=== PATIENT | female | born 2000 | race African-American/Black ===

== ENCOUNTER 2019-01-05 09:40 | Emergency (ER) | payer OTHER ==
--- NOTE | 2019-01-05 10:07 | ED ---
Abdominal Pain/Female - HPI Summary HPI Summary: Patient is a 18 y/o female who presents to the ED c/o abdominal pain. Around 5: 00 this morning she began to have mild umbilical abdominal pain. Patient walked back home and the pain became worse after lying down. The pain is rated an 8/10 in severity and is constant. She describes the feeling as a weight in her stomach and is made worse with walking and touch. Patient denies any N/V/D, constipation, fever, or pelvic pain. She denies any recent sexual activity. - History of Current Complaint Chief Complaint: EDGordonin Stated Complaint: "PAIN ABOVE THE NAVAL" PER PT Time Seen by Provider: 01/05/19 09:54 Hx Obtained From: Patient Onset/Duration: Gradual Onset, Lasting Hours - 5:00 this morning, Worse Since Timing: Constant Severity Initially: Mild Severity Currently: Severe Pain Intensity: 8 Pain Scale Used: 0-10 Numeric Location: Umbilical Radiates: No Character: Other: - "weight" Aggravating Factor(s): Movement, Other: - touch Alleviating Factor(s): Nothing Associated Signs and Symptoms: Negative: Fever, Constipation, Nausea, Vomiting, Diarrhea Allergies/Adverse Reactions: Allergies Allergy/AdvReac Type Severity Reaction Status Date / Time Sulfa (Sulfonamide Allergy Hives Verified 01/05/19 09:45 Antibiotics) Home Medications: Home Medications Calcium Citrate TAB* [Citracal TAB*] 200 mg PO BID PRN 01/05/19 [History Confirmed 01/05/19] PMH/Surg Hx/FS Hx/Imm Hx Endocrine/Hematology History: Denies: Hx Diabetes Cardiovascular History: Denies: Hx Hypertension Psychiatric History: Reports: Hx Anxiety Infectious Disease History: No Infectious Disease History: Denies: Traveled Outside the [place] in Last 30 Days - Family History Known Family History: Positive: Hypertension - Social History Alcohol Use: Occasionally Hx Substance Use: No Substance Use Type: Reports: None Hx Tobacco Use: No Smoking Status (MU): Never Smoked Tobacco Review of Systems Negative: Fever Positive: Abdominal Pain. Negative: Vomiting, Diarrhea, Nausea, Other - constipation Negative: Myalgia - pelvic pain All Other Systems Reviewed And Are Negative: Yes Physical Exam - Summary Physical Exam Summary: Appearance: Well appearing, no pain distress Skin: warm, dry, reflects adequate perfusion Head/face: normal Eyes: EOMI, DANIELA ENT: mucous membranes moist Neck: supple, non-tender Respiratory: CTA, breath sounds present Cardiovascular: RRR, pulses symmetrical Abdomen: soft, tenderness local to umbilicus in soft tissue external to abdomen , fullness to right side of umbilicus, RLQ and pelvis non-tender, moves freely without pain, no hernia palpated Bowel Sounds: present Musculoskeletal: normal, strength/ROM intact Neuro: normal, sensory motor intact, A&Ox3 Triage Information Reviewed: Yes Vital Signs On Initial Exam: Initial Vitals Temp Pulse Resp BP Pulse Ox 98.6 F 74 16 135/84 100 01/05/19 09:41 01/05/19 09:41 01/05/19 09:41 01/05/19 09:41 01/05/19 09:41 Vital Signs Reviewed: Yes Diagnostics - Vital Signs Vital Signs Temp Pulse Resp BP Pulse Ox 01/05/19 09:41 98.6 F 74 16 135/84 100 - Laboratory Result Diagrams: 01/05/19 10:19 01/05/19 10:19 Lab Statement: Any lab studies that have been ordered have been reviewed, and results considered in the medical decision making process. - Ultrasound No standard instances Ultrasound Interpretation Completed By: Radiologist Summary of Ultrasound Findings: Abdomen US: HYPOECHOIC LESION OF THE AREA OF CLINICAL ABNORMALITY. IMAGING APPEARANCE IS INDETERMINATE BUT IS SUGGESTIVE OF FAT WITHIN A SMALL FAT-CONTAINING OF THE HERNIA. THERE IS NO INFLAMMATORY CHANGE. THERE IS NO LOCULATED FLUID COLLECTION. THERE IS NO APPRECIABLE PERSISTENT URACHUS. FINDINGS WERE REVIEWED WITH DR. CLARK ON THE MORNING OF JANUARY 05, 2019. ED physician reviewed radiology report. Abdominal Pain Fem Course/Dx - Course Course Of Treatment: Nurse's notes reviewed. Patient has tenderness localized to the soft tissues adjacent to the umbilicus. Concern for ureteral remanent or hernia. Ultrasound shows a small fat-containing hernia in the area. Her laboratories are benign and more importantly her right lower quadrant is completely nontender. She moves freely without tenderness. She was given Naprosyn here with full relief. She will follow-up with surgery as needed. - Diagnoses Differential Diagnosis: Positive: Appendicitis, Ovarian Cyst, Pelvic Inflammatory Disease, Other - Umbilical hernia, urachal remnant Provider Diagnoses: Umbilical pain, Umbilical hernia Discharge - Sign-Out/Discharge Documenting (check all that apply): Patient Departure - Discharge Patient Received Moderate/Deep Sedation with Procedure: No - Discharge Plan Condition: Improved Disposition: HOME Patient Education Materials: Umbilical Hernia (ED) Referrals: Kaylee Denney NP [Primary Care Provider] - Chad Ovalles MD [Medical Doctor] - Additional Instructions: Ice to the area, Tylenol, ibuprofen for discomfort. Firm pressure may help any discomfort. Return with uncontrolled pain, redness, color change, worse, new symptoms or other concerns. Call to schedule follow-up appointment with surgeon if you're having persistent discomfort. - Billing Disposition and Condition Condition: IMPROVED Disposition: Home - Attestation Statements Document Initiated by Scribe: Yes Documenting Scribe: Beth Gaines Provider For Whom Scribe is Documenting (Include Credential): Gautam Clark MD Scribe Attestation: Beth Acuna scribed for Gautam Clark MD on 01/05/19 at 1529. Scribe Documentation Reviewed: Yes Provider Attestation: The documentation as recorded by the Beth cornejo accurately reflects the service I personally performed and the decisions made by Gautam tracy MD Status of Scribe Document: Viewed
[2019-01-05 10:27] LABS: ABS Basophils 0 10^3/ul (0-0.2); ABS Eosinophils 0.1 10^3/ul (0-0.6); ABS Lymphocytes 1.8 10^3/ul (1.0-4.8); ABS Monocytes 0.4 10^3/ul (0-0.8); ABS Neutrophils 5.1 10^3/ul (1.5-7.7); ABS Nucleated RBC 0 10^3/ul; Eosinophil % 1.3 %; Hematocrit 39 % (33-41); Hemoglobin 12.6 g/dL (12.0-16.0); Mean Corpuscular HGB Conc 33 g/dL (31-36); Mean Corpuscular Hemoglobin 26 pg (27-31); Mean Corpuscular Volume 80 fL (80-97); Nucleated Red Blood Cells % 0; Platelet Count 189 10^3/uL (150-450); Red Cell Distribution Width 14 % (10.5-15); White Blood Count 7.4 10^3/uL (3.5-10.8)
[2019-01-05 10:44] LABS: ALT 9 U/L (7-52); AST 18 U/L (13-39); Albumin 4.3 g/dL (3.2-5.2); Albumin/Globulin Ratio 1.5 (1-3); Alkaline Phosphatase 44 U/L (34-104); Anion Gap 7 mmol/L (2-11); BUN/Creatinine Ratio 17.1 (8-20); Blood Urea Nitrogen 14 mg/dL (6-24); C Reactive Protein < 1.00 mg/L (<8.01); CO2 Carbon Dioxide 24 mmol/L (22-32); Calcium 9.1 mg/dL (8.6-10.3); Chloride 105 mmol/L (101-111); EGFR African American 108.7 (>60); EGFR Non-African American 89.8 (>60); Globulin 2.9 g/dL (2-4); Glucose 83 mg/dL (70-100); Potassium 3.6 mmol/L (3.5-5.0); Sodium 136 mmol/L (135-145); Total Protein 7.2 g/dL (6.4-8.9)
[2019-01-05 10:51] LABS: HCG Pregnancy < 0.60 mIU/mL
[2019-01-05 11:00] LABS: Urine Appearance Clear; Urine Bacteria 1+ (Absent); Urine Bilirubin Negative (Negative); Urine Blood Negative (Negative); Urine Color Yellow; Urine Glucose Negative (Negative); Urine Ketones Trace (Negative); Urine Nitrite Negative (Negative); Urine Protein Negative (Negative); Urine Red Blood Cell Absent (Absent); Urine Specific Gravity 1.015 (1.010-1.030); Urine Squamous Epithelial Cell Present (Absent); Urine Urobilinogen Negative (Negative); Urine White Blood Cell Trace(0-5/hpf) (Absent)
[2019-01-05] MEDS ORDERED: Naproxen TAB* 250 MG PO ONE (11:35)
[2019-01-06 12:43] LABS: Neisseria gonorrhoeae (GC) RNA Negative (Negative)
== END 2019-01-05 11:59 | disposition home or self-care (01) ==
LOC: ED 09:40
DX: K42.9 Umbilical hernia without obstruction or gangrene (principal); F41.9 Anxiety disorder, unspecified; Z88.2 Allergy status to sulfonamides
CPT/HCPCS: 36415; 76705; 80053; 81003; 81015; 83605; 83690; 84702; 85025; 86140; 87086; 87491; 87591; 99282; A9270-GY

== ENCOUNTER 2020-12-08 17:26 | Inpatient (IN) ==
[2020-12-08 19:42] LABS: Hematocrit 29 % (35-47); Hemoglobin 9.7 g/dL (12.0-16.0); Mean Corpuscular HGB Conc 34 g/dL (31-36); Mean Corpuscular Hemoglobin 26 pg (27-31); Mean Corpuscular Volume 76 fL (80-97); Mean Platelet Volume 7.8 fL (7.4-10.4); Platelet Count 297 10^3/uL (150-450); Red Blood Count 3.77 10^6 /uL (3.70-4.87); Red Cell Distribution Width 14 % (10-15); White Blood Count 8.9 10^3/uL (3.5-10.8)
[2020-12-08 19:59] LABS: ALT 9 U/L (7-52); AST 12 U/L (13-39); Albumin/Globulin Ratio 0.9 (1-3); Alkaline Phosphatase 50 U/L (34-104); BUN/Creatinine Ratio 11.7 (8-20); Blood Urea Nitrogen 9 mg/dL (6-24); CO2 Carbon Dioxide 23 mmol/L (22-32); Calcium 7.7 mg/dL (8.6-10.3); Chloride 102 mmol/L (101-111); EGFR African American 114.5 (>60); EGFR Non-African American 94.6 (>60); Globulin 3.5 g/dL (2-4); Glucose 101 mg/dL (70-100); Sodium 135 mmol/L (135-145); Total Protein 6.5 g/dL (6.4-8.9)
[2020-12-08 20:01] LABS: Anion Gap 10 mmol/L (2-11); Potassium 2.7 mmol/L (3.5-5.0)
[2020-12-08] MEDS ORDERED: Potassium Chlor 20 meq TAB.ER PO ONE (20:03)
[2020-12-08 20:14] LABS: HCG Pregnancy < 0.60 mIU/mL
[2020-12-08 20:16] LABS: Magnesium 1.5 mg/dL (1.9-2.7)
[2020-12-08 20:21] LABS: C Reactive Protein 177.23 mg/L (<8.01); Lipase 35 U/L (11.0-82.0)
[2020-12-08 21:35] LABS: ABS Lymphocytes 1.1 10^3/ul (1.0-4.8); ABS Monocytes 1.6 10^3/ul (0-0.8); ABS Neutrophils 6.1 10^3/ul (1.5-7.7); Eosinophil % 0.3 %; Lymphocyte % 12.8 %; Nucleated Red Blood Cells % 0.1
[2020-12-08] MEDS ORDERED: KCL 10 MEQ/50 ML IVPREMIX 10 MEQ/50 ML BAG IV ONE (21:43)
[2020-12-08] MEDS ORDERED: Magnesium Sulfate IV 1GM/100ML 1 GM/100 ML BAG IV ONE (21:43)
[2020-12-08] MEDS ORDERED: NS 0.9% 1000 ml BAG 1,000 ML IV.FLUID IV ONE (22:23)
[2020-12-08] MEDS ORDERED: Iohexol 300 (CONTRAST) 10 ML SDV IV ONE (22:24)
[2020-12-09] MEDS ORDERED: Ciprofloxacin 400mg IVPREMIX 400 MG/200 ML BAG IVPB ONE (00:44)
[2020-12-09] MEDS ORDERED: metroNIDAZOLE IV 500 MG/100ML 500 MG/100 ML BAG IVPB ONE (00:44)
[2020-12-09] MEDS ORDERED: Potassium Chlor 20 meq TAB.ER PO ONE ×2 (01:14→08:49)
[2020-12-09] MEDS ORDERED: Piperacillin/Tazobac ADVAN 3.375 GM in NS 0.9% 100 ml BAG 100 ML IV ONE (01:19)
[2020-12-09 01:43] LABS: Urine Appearance Cloudy; Urine Bilirubin Negative (Negative); Urine Blood 3+ (Negative); Urine Color Yellow; Urine Glucose Negative (Negative); Urine Ketones 2+ (Negative); Urine Nitrite Negative (Negative); Urine Protein 1+(30 mg/dL) (Negative); Urine Specific Gravity 1.013 (1.010-1.030); Urine Urobilinogen Negative (Negative)
[2020-12-09 01:45] LABS: Urine Bacteria 1+ (Absent); Urine Red Blood Cell 1+(3-5/hpf) (Absent); Urine Squamous Epithelial Cell Present (Absent); Urine White Blood Cell 3+(>20/hpf) (Absent)
[2020-12-09] MEDS ORDERED: Zosyn per Pharmacy NOTE FOLLOW UP SCH (02:00)
[2020-12-09] MEDS ORDERED: Ondansetron 4 mg VIAL 2 MG/ML 2 ml VIAL IV PRN (04:01)
[2020-12-09] MEDS ORDERED: Potassium EFFERVES 25 meq TAB PO ONE (04:07)
[2020-12-09] MEDS: NS 0.9% 1000 ml BAG 1,000 ML IV SCH (06:05)
[2020-12-09] MEDS: ZOSYN 3.375 GM Q8H per EXTENDED INFUSION IV SCH ×3 (06:09→20:43)
[2020-12-09 06:58] LABS: Hematocrit 26 % (35-47); Hemoglobin 8.8 g/dL (12.0-16.0); Mean Corpuscular HGB Conc 34 g/dL (31-36); Mean Corpuscular Hemoglobin 26 pg (27-31); Mean Corpuscular Volume 76 fL (80-97); Mean Platelet Volume 8.1 fL (7.4-10.4); Platelet Count 240 10^3/uL (150-450); Red Cell Distribution Width 14 % (10-15); White Blood Count 7.9 10^3/uL (3.5-10.8)
[2020-12-09 07:16] LABS: BUN/Creatinine Ratio 10.3 (8-20); Calcium 7.8 mg/dL (8.6-10.3); EGFR African American 112.8 (>60); EGFR Non-African American 93.2 (>60); Magnesium 1.8 mg/dL (1.9-2.7); Potassium 3.3 mmol/L (3.5-5.0)
[2020-12-09] MEDS: NITROGLYCERIN 0.4% TOPICAL SCH ×2 (07:47→20:43)
[2020-12-09] MEDS ORDERED: Magnesium Sulfate IV 1GM/100ML 1 GM/100 ML BAG IV ONE (07:53)
[2020-12-09 08:15] LABS: ABS Lymphocytes 0.7 10^3/ul (1.0-4.8); ABS Monocytes 2.1 10^3/ul (0-0.8); ABS Neutrophils 5.1 10^3/ul (1.5-7.7); Eosinophil % 0.1 %; Lymphocyte % 9.1 %; Nucleated Red Blood Cells % 0.1
[2020-12-09] MEDS ORDERED: Dextran 70/Hypromellose Tears Eye Drops 15 ml BTL (for Artificials Tears) BOTH EYES PRN (09:17)
[2020-12-09 09:43] LABS: Corrected Retic Count 0.8 % (0.5-1.5); Hematocrit for Retic CNT 26 % (35-47); Immature Retic Fraction 0.47
[2020-12-09] MEDS ORDERED: Potassium Chloride LIQUID 20 MEQ/15 ML LIQUID PO ONE (10:30)
[2020-12-09] MEDS: Lidocaine 2% JELLY 6 ML TOPICAL SCH (20:43)
[2020-12-10] MEDS: ZOSYN 3.375 GM Q8H per EXTENDED INFUSION IV SCH ×3 (05:12→21:50)
[2020-12-10] MEDS: NS 0.9% 1000 ml BAG 1,000 ML IV SCH (05:14)
[2020-12-10 05:39] LABS: Hematocrit 23 % (35-47); Hemoglobin 7.8 g/dL (12.0-16.0); Mean Corpuscular HGB Conc 34 g/dL (31-36); Mean Corpuscular Hemoglobin 26 pg (27-31); Mean Corpuscular Volume 76 fL (80-97); Mean Platelet Volume 8.4 fL (7.4-10.4); Platelet Count 215 10^3/uL (150-450); Red Blood Count 3.04 10^6 /uL (3.70-4.87); Red Cell Distribution Width 14 % (10-15); White Blood Count 7.9 10^3/uL (3.5-10.8)
[2020-12-10 05:55] LABS: Anion Gap 11 mmol/L (2-11); BUN/Creatinine Ratio 14.5 (8-20); Blood Urea Nitrogen 11 mg/dL (6-24); C Reactive Protein 249.69 mg/L (<8.01); CO2 Carbon Dioxide 20 mmol/L (22-32); Calcium 7.6 mg/dL (8.6-10.3); Chloride 104 mmol/L (101-111); EGFR African American 116.2 (>60); EGFR Non-African American 96.1 (>60); Glucose 101 mg/dL (70-100); Potassium 3.1 mmol/L (3.5-5.0); Sodium 135 mmol/L (135-145)
[2020-12-10 06:04] LABS: Total Iron Binding Capacity 137 mcg/dL (250-450); Transferrin 98 mg/dL (203-362)
[2020-12-10 06:23] LABS: Ferritin 429.2 ng/mL (11-307)
[2020-12-10 06:45] LABS: % Iron Saturation 15 % (15-55); Iron < 20 ug/dL (50-212); Unsaturated Iron Binding < 122 ug/dL
[2020-12-10] MEDS: KCL 10 MEQ/50 ML IVPREMIX 10 MEQ/50 ML BAG IV SCH ×4 (07:27→10:52)
[2020-12-10] MEDS: Lidocaine 2% JELLY 6 ML TOPICAL SCH ×2 (07:27→21:51)
[2020-12-10] MEDS: NITROGLYCERIN 0.4% TOPICAL SCH (07:29)
[2020-12-10 08:45] LABS: ABS Lymphocytes 0.7 10^3/ul (1.0-4.8); ABS Monocytes 1.5 10^3/ul (0-0.8); ABS Neutrophils 5.7 10^3/ul (1.5-7.7); Eosinophil % 0.4 %; Lymphocyte % 8.9 %; Nucleated Red Blood Cells % 0.2
[2020-12-10 08:48] LABS: Microcytosis 1+
[2020-12-10] MEDS ORDERED: fentaNYL 100 mcg/2 ml 50 MCG/ML VIAL ONE (13:06)
[2020-12-10] MEDS ORDERED: Midazolam 10 mg/10 ml VIAL 1 mg/ml 10 ml VIAL (10 mg) ONE (13:06)
[2020-12-10] MEDS ORDERED: Iron Sucrose 200 MG in NS 0.9% 100 ml BAG 100 ML IVPB ONE (16:30)
[2020-12-10] MEDS: methylPREDNISolone SOD 40 mg/ml 1 ml VIAL IV SCH (16:45)
[2020-12-11] MEDS: NS 0.9% 1000 ml BAG 1,000 ML IV SCH ×2 (03:33→14:04)
[2020-12-11] MEDS: ZOSYN 3.375 GM Q8H per EXTENDED INFUSION IV SCH ×3 (05:32→21:56)
[2020-12-11 06:34] LABS: BUN/Creatinine Ratio 20.4 (8-20); Blood Urea Nitrogen 11 mg/dL (6-24); C Reactive Protein 211.59 mg/L (<8.01); CO2 Carbon Dioxide 23 mmol/L (22-32); Calcium 7.9 mg/dL (8.6-10.3); Chloride 108 mmol/L (101-111); EGFR African American 172.4 (>60); EGFR Non-African American 142.5 (>60); Glucose 119 mg/dL (70-100); Sodium 137 mmol/L (135-145)
[2020-12-11 06:41] LABS: Hematocrit 26 % (35-47); Hemoglobin 8.3 g/dL (12.0-16.0); Mean Corpuscular HGB Conc 32 g/dL (31-36); Mean Corpuscular Hemoglobin 25 pg (27-31); Mean Corpuscular Volume 78 fL (80-97); Mean Platelet Volume 8.7 fL (7.4-10.4); Platelet Count 207 10^3/uL (150-450); Red Blood Count 3.29 10^6 /uL (3.70-4.87); Red Cell Distribution Width 14 % (10-15); White Blood Count 6.6 10^3/uL (3.5-10.8)
[2020-12-11 06:46] LABS: Anion Gap 6 mmol/L (2-11)
[2020-12-11] MEDS: Lidocaine 2% JELLY 6 ML TOPICAL SCH ×2 (09:33→22:42)
[2020-12-11] MEDS: methylPREDNISolone SOD 40 mg/ml 1 ml VIAL IV SCH ×2 (09:33→21:55)
[2020-12-11] MEDS: Iron Sucrose 200 MG in NS 0.9% 100 ml BAG 100 ML IVPB SCH (09:41)
[2020-12-11 15:49] LABS: Hepatitis B Surface Antigen Nonreactive (Nonreactive)
[2020-12-11 16:07] LABS: Hepatitis B Surface Ab Immune (Immune)
[2020-12-12] MEDS: NS 0.9% 1000 ml BAG 1,000 ML IV SCH (04:58)
[2020-12-12 05:22] LABS: Hematocrit 26 % (35-47); Mean Corpuscular HGB Conc 34 g/dL (31-36); Mean Corpuscular Hemoglobin 26 pg (27-31); Mean Corpuscular Volume 76 fL (80-97); Mean Platelet Volume 8.4 fL (7.4-10.4); Platelet Count 308 10^3/uL (150-450); Red Blood Count 3.47 10^6 /uL (3.70-4.87); Red Cell Distribution Width 14 % (10-15); White Blood Count 7.1 10^3/uL (3.5-10.8)
[2020-12-12] MEDS: ZOSYN 3.375 GM Q8H per EXTENDED INFUSION IV SCH (05:29)
[2020-12-12 05:37] LABS: BUN/Creatinine Ratio 18.5 (8-20); C Reactive Protein 120.26 mg/L (<8.01); Calcium 8.1 mg/dL (8.6-10.3); EGFR African American 139.2 (>60); EGFR Non-African American 115.1 (>60); Potassium 3.3 mmol/L (3.5-5.0)
[2020-12-12 05:56] LABS: Microcytosis 1+; Polychromasia 1+
[2020-12-12 05:57] LABS: ABS Lymphocytes 0.5 10^3/ul (1.0-4.8); ABS Monocytes 0.6 10^3/ul (0-0.8); Lymphocyte % 7.3 %; Nucleated Red Blood Cells % 0.2
[2020-12-12] MEDS ORDERED: Potassium Chloride LIQUID 20 MEQ/15 ML LIQUID PO ONE (06:54)
[2020-12-12] MEDS: methylPREDNISolone SOD 40 mg/ml 1 ml VIAL IV SCH ×2 (07:59→20:24)
[2020-12-12] MEDS: Iron Sucrose 200 MG in NS 0.9% 100 ml BAG 100 ML IVPB SCH ×2 (07:59→10:28)
[2020-12-12] MEDS: Lidocaine 2% JELLY 6 ML TOPICAL SCH ×2 (08:01→20:25)
[2020-12-12] MEDS: KCL 10 MEQ/50 ML IVPREMIX 10 MEQ/50 ML BAG IV SCH ×2 (10:58→12:16)
[2020-12-12] MEDS: Enoxaparin 40 MG/0.4 ML SYR SUBCUT SCH (14:14)
[2020-12-13 06:01] LABS: Hematocrit 26 % (35-47); Hemoglobin 8.8 g/dL (12.0-16.0); Mean Corpuscular HGB Conc 33 g/dL (31-36); Mean Corpuscular Hemoglobin 25 pg (27-31); Mean Corpuscular Volume 76 fL (80-97); Mean Platelet Volume 8.2 fL (7.4-10.4); Platelet Count 290 10^3/uL (150-450); Red Blood Count 3.44 10^6 /uL (3.70-4.87); Red Cell Distribution Width 14 % (10-15); White Blood Count 7.3 10^3/uL (3.5-10.8)
[2020-12-13 06:17] LABS: BUN/Creatinine Ratio 23.7 (8-20); C Reactive Protein 62.51 mg/L (<8.01); Calcium 7.8 mg/dL (8.6-10.3); EGFR African American 155.7 (>60); EGFR Non-African American 128.7 (>60); Potassium 3.4 mmol/L (3.5-5.0)
[2020-12-13 07:34] LABS: ABS Lymphocytes 0.8 10^3/ul (1.0-4.8); ABS Monocytes 0.9 10^3/ul (0-0.8); ABS Neutrophils 5.6 10^3/ul (1.5-7.7); Eosinophil % 0.1 %; Lymphocyte % 10.9 %; Nucleated Red Blood Cells % 0.3
[2020-12-13 07:38] LABS: Polychromasia 1+
[2020-12-13] MEDS: methylPREDNISolone SOD 40 mg/ml 1 ml VIAL IV SCH (09:41)
[2020-12-13] MEDS: Lidocaine 2% JELLY 6 ML TOPICAL SCH ×2 (09:41→13:42)
[2020-12-13 11:21] VITALS: BP 100/61
[2020-12-13 11:32] LABS: TB1 Ag minus Nil Result 0.01 IU/mL; TB2 Ag minus Nil Result 0.01 IU/mL
[2020-12-13 11:35] LABS: QuantiferonTb Gold Plus Result Negative (Negative)
[2020-12-13] MEDS: Enoxaparin 40 MG/0.4 ML SYR SUBCUT SCH (13:42)
== END 2020-12-13 14:00 | disposition home or self-care (01) | DRG 392 ==
LOC: ED 17:26 → MEDTELE 12-09 01:20 → MED 12-10 23:04
PROVIDERS: ADMIT Internal Medicine; ATTEND Pediatrics